=== PATIENT | male | born 1980 | race Caucasian/White ===

== ENCOUNTER 2023-04-18 17:38 | Inpatient (IN) | payer OTHER, MEDICAID ==
[~2023-04-18] VITALS: Ht 180.3 cm; Wt 103.0 kg
[2023-04-18 17:58] VITALS: RESP 18
[2023-04-18] MEDS ORDERED: MORPHINE 4 MG INJ. 4 MG/ML VIAL IVP ONE (20:15)
[2023-04-18 20:21] LABS: BASOPHILS # (AUTO) 0.1 K/uL (0.0-0.2); BASOPHILS % (AUTO) 0.5 % (0.0-2.0); EOSINOPHILS # (AUTO) 0.4 K/uL (0.0-0.4); HEMATOCRIT 22.5 % (36-54); HEMOGLOBIN 7.2 g/dL (14.0-18.0); LYMPHOCYTES # (AUTO) 1.9 K/uL (1.0-5.5); LYMPHOCYTES % (AUTO) 17.4 % (20.5-51.5); MEAN CORPUSCULAR HEMOGLOBIN 26 pg (27-31); MEAN CORPUSCULAR HGB CONC 32 % (32-36); MEAN CORPUSCULAR VOLUME 79 fL (79.0-98.0); MONOCYTES # (AUTO) 1.2 K/uL (0.0-1.0); NEUTROPHILS # (AUTO) 7.4 K/uL (1.8-7.7); NEUTROPHILS % (AUTO) 67.1 % (40.0-70.0); PLATELET COUNT (AUTO) 597 K/uL (130-430); RED BLOOD CELL COUNT(AUTO) 2.84 MIL/uL (4.2-6.2); RED CELL DISTRIBUTION WIDTH 17.4 % (9.0-15.0)
[2023-04-18 20:39] LABS: ALANINE AMINOTRANSFERASE 5 U/L (12-78); ALBUMIN 2.4 g/dL (3.4-4.8); ANION GAP 11 (5-15); ASPARTATE AMINOTRANSFERASE 18 U/L (10-37); CALCIUM 9.3 mg/dL (8.4-11.0); CARBON DIOXIDE 27 mmol/L (23-29); CHLORIDE 89 mmol/L (98-107); GFR AFRICAN AMERICAN 10 mL/min (>90); GLUCOSE 183 mg/dL (74-106); POTASSIUM 4.1 mmol/L (3.5-5.1); SODIUM SERUM 127 mmol/L (136-145); TOTAL BILIRUBIN 0.2 mg/dL (0.0-1.0); TOTAL PROTEIN, SERUM 7.7 g/dL (6.4-8.3); UREA NITROGEN, BLOOD 46 mg/dL (8-21)
[2023-04-18 20:40] LABS: GFR NON AFRICAN-AMERICAN 8 mL/min (>90)
[2023-04-18 20:42] LABS: CREATININE 7.73 mg/dL (0.55-1.30)
[2023-04-18] MEDS ORDERED: SSNOVOLOG SUBCUT (21:50)
[2023-04-18] MEDS ORDERED: FOLI0.8T42 PO (21:50)
[2023-04-18] MEDS ORDERED: BISA-140 PO (21:50)
[2023-04-18] MEDS ORDERED: AMIN30LI2 PO (21:50)
[2023-04-18] MEDS ORDERED: COR25 PO (21:50)
[2023-04-18] MEDS ORDERED: VITD2000 PO (21:50)
[2023-04-18] MEDS ORDERED: LOP600 PO (21:50)
[2023-04-18] MEDS ORDERED: LOSA-415 PO (21:50)
[2023-04-18] MEDS ORDERED: ONDA-8 TL (21:50)
[2023-04-18] MEDS ORDERED: BISACODYL RC (21:50)
[2023-04-18] MEDS ORDERED: HYDR100T25 PO (21:50)
[2023-04-18] MEDS ORDERED: DIPH25CA83 PO (21:50)
[2023-04-18] MEDS ORDERED: DILAUDID PO (21:50)
[2023-04-18] MEDS ORDERED: HYDR-3921 PO (21:50)
[2023-04-18] MEDS ORDERED: TRAM50TA2 PO (21:50)
[2023-04-18] MEDS ORDERED: MOM PO (21:50)
[2023-04-18] MEDS ORDERED: PRO40 PO (21:50)
[2023-04-18] MEDS ORDERED: ZINC-220 PO (21:50)
[2023-04-18] MEDS ORDERED: ACET325T53 PO (21:50)
[2023-04-18] MEDS ORDERED: NOR10 PO (21:50)
[2023-04-18] MEDS ORDERED: CALC667T6 PO (21:50)
[2023-04-18] MEDS ORDERED: CYCL10TA24 PO (21:50)
[2023-04-18] MEDS ORDERED: MORPHINE 2 MG/ML INJ. SYRINGE IVP ONE (22:00)
[2023-04-19] MEDS ORDERED: DIPHENHYDRAMINE INJ 50 MG/ML VIAL IVP ONE (00:15)
[2023-04-19 02:18] VITALS: BP_SYST 144; PULSE 108; RESP 20; TEMP 98.6; O2SAT 95
[2023-04-19] MEDS ORDERED: NALOXONE HCL 0.4 MG/ML AMP (NARCAN) IVP PRN (05:45)
[2023-04-19] MEDS ORDERED: MORPHINE 2 MG/ML INJ. SYRINGE IVP ONE (05:45)
[2023-04-19] MEDS ORDERED: LACTULOSE 20 GM/30 ML UDC PO PRN (05:45)
[2023-04-19] MEDS ORDERED: traMADol HCL HCL 50 MG TABLET (ULTRAM) PO PRN (09:00)
[2023-04-19] MEDS ORDERED: MORPHINE 2 MG/ML INJ. SYRINGE IVP PRN (09:00)
[2023-04-19] MEDS: DIPHENHYDRAMINE HCL 25 MG CAPSULE PO PRN ×2 (09:47→15:41)
[2023-04-19] MEDS ORDERED: CHOLECALCIFEROL (VITAMIN D3) 2,000 UNIT TABLET PO ONE (10:00)
[2023-04-19] MEDS ORDERED: NEPHROVITE, (FOLIC ACID/VITAMIN B COMP W-C 1 TAB) PO ONE (10:00)
[2023-04-19] MEDS ORDERED: CARVEDILOL 25 MG TABLET (COREG) PO ONE (10:00)
[2023-04-19] MEDS ORDERED: CYCLOBENZAPRINE HCL 10 MG TABLET (FLEXERIL) PO ONE (10:00)
[2023-04-19] MEDS ORDERED: PANTOPRAZOLE SODIUM 40 MG TAB PO ONE (10:00)
[2023-04-19] MEDS ORDERED: amLODIPine BESYLATE 10 MG TABLET PO ONE (10:00)
[2023-04-19] MEDS ORDERED: GLUCOSE (DEXTROSE) ORAL GEL -Adults PO PRN (10:00)
[2023-04-19] MEDS ORDERED: D5W 1,000 ML IV PRN (10:00)
[2023-04-19] MEDS ORDERED: DEXTROSE 50% JECT 50 ML DISP.SYRIN IVP PRN (10:00)
[2023-04-19] MEDS ORDERED: GEMFIBROZIL 600 MG TABLET (LOPID) PO ONE (10:00)
[2023-04-19 11:20] VITALS: BP_SYST 164; PULSE 78; RESP 16; TEMP 96.3; O2SAT 95
[2023-04-19] MEDS ORDERED: INSULIN REGULAR, HUMAN 100 UNITS/ML, 3 ML VIAL SUBCUT SCH (11:30)
[2023-04-19] MEDS: CALCIUM ACETATE 667 MG CAP PO SCH ×2 (11:40→17:19)
[2023-04-19] MEDS: INSULIN REGULAR, HUMAN 100 UNITS/ML, 3 ML VIAL (humuLIN R) SUBCUT PRN ×2 (11:53→21:03)
[2023-04-19] MEDS: HYDROmorphone 1 MG/ML INJ. CARTRIDGE IVP PRN ×3 (11:55→20:49)
[2023-04-19] MEDS: hydrALAZINE HCL 25 MG TABLET PO SCH ×2 (13:30→22:57)
[2023-04-19] MEDS: HYDROcodone/ACETAMIN 7.5-325 MG TAB PO PRN ×3 (13:30→22:55)
[2023-04-19 15:24] VITALS: O2SAT 98
[2023-04-19 17:00] VITALS: BP_SYST 137; PULSE 73; RESP 16; TEMP 96.1; O2SAT 99
[2023-04-19 19:00] VITALS: BP_SYST 151; PULSE 78; RESP 16; TEMP 98.1; O2SAT 98
[2023-04-19] MEDS: CARVEDILOL 25 MG TABLET (COREG) PO SCH (20:55)
[2023-04-19] MEDS: CYCLOBENZAPRINE HCL 10 MG TABLET (FLEXERIL) PO SCH (20:56)
[2023-04-19] MEDS: GEMFIBROZIL 600 MG TABLET (LOPID) PO SCH (20:56)
[2023-04-19] MEDS ORDERED: CEFEPIME 1 GM/VIAL (MAXIPIME) ONE (22:53)
[2023-04-19] MEDS: CEFEPIME 1 GM in D5W 50 ML IV SCH (23:14)
[2023-04-20] MEDS: HYDROmorphone 1 MG/ML INJ. CARTRIDGE IVP PRN ×6 (01:25→21:57)
[2023-04-20] MEDS ORDERED: MAG-AL HYDROX/SIMETH 30 ML UDC PO PRN (01:30)
[2023-04-20 01:54] VITALS: BP_SYST 140; PULSE 74; RESP 17; TEMP 97.4; O2SAT 99
[2023-04-20] MEDS: DIPHENHYDRAMINE INJ 50 MG/ML VIAL IVP PRN ×4 (03:36→22:13)
[2023-04-20 05:16] LABS: BASOPHILS # (AUTO) 0.1 K/uL (0.0-0.2); BASOPHILS % (AUTO) 0.5 % (0.0-2.0); EOSINOPHILS # (AUTO) 0.4 K/uL (0.0-0.4); EOSINOPHILS % (AUTO) 3.3 % (0.0-4.0); HEMATOCRIT 22.6 % (36-54); HEMOGLOBIN 7.4 g/dL (14.0-18.0); LYMPHOCYTES # (AUTO) 1.3 K/uL (1.0-5.5); LYMPHOCYTES % (AUTO) 12.4 % (20.5-51.5); MEAN CORPUSCULAR HEMOGLOBIN 26 pg (27-31); MEAN CORPUSCULAR HGB CONC 33 % (32-36); MEAN CORPUSCULAR VOLUME 79 fL (79.0-98.0); MONOCYTES % (AUTO) 9.9 % (1.7-9.3); NEUTROPHILS # (AUTO) 7.8 K/uL (1.8-7.7); NEUTROPHILS % (AUTO) 73.9 % (40.0-70.0); PLATELET COUNT (AUTO) 576 K/uL (130-430); RED BLOOD CELL COUNT(AUTO) 2.86 MIL/uL (4.2-6.2); RED CELL DISTRIBUTION WIDTH 17.5 % (9.0-15.0); WHITE BLOOD COUNT (AUTO) 10.5 K/uL (4.8-10.8)
[2023-04-20] MEDS: hydrALAZINE HCL 25 MG TABLET PO SCH ×3 (05:31→21:41)
[2023-04-20 05:46] LABS: CALCIUM 9.3 mg/dL (8.4-11.0); CREATININE 6.14 mg/dL (0.55-1.30); POTASSIUM 3.7 mmol/L (3.5-5.1)
[2023-04-20 08:00] VITALS: BP_SYST 177; PULSE 78; RESP 20; TEMP 96.3; O2SAT 99
[2023-04-20] MEDS: CARVEDILOL 25 MG TABLET (COREG) PO SCH ×2 (08:37→21:39)
[2023-04-20] MEDS: PANTOPRAZOLE SODIUM 40 MG TAB PO SCH (08:37)
[2023-04-20] MEDS: NEPHROVITE, (FOLIC ACID/VITAMIN B COMP W-C 1 TAB) PO SCH (08:38)
[2023-04-20] MEDS: CALCIUM ACETATE 667 MG CAP PO SCH ×3 (08:38→17:45)
[2023-04-20] MEDS: CHOLECALCIFEROL (VITAMIN D3) 2,000 UNIT TABLET PO SCH (08:38)
[2023-04-20] MEDS: GEMFIBROZIL 600 MG TABLET (LOPID) PO SCH ×2 (08:38→21:40)
[2023-04-20] MEDS: HYDROcodone/ACETAMIN 7.5-325 MG TAB PO PRN ×2 (08:39→15:16)
[2023-04-20] MEDS: LOSARTAN POTASSIUM 50 MG TABLET (COZAAR) PO SCH (08:40)
[2023-04-20] MEDS: amLODIPine BESYLATE 10 MG TABLET PO SCH (08:41)
[2023-04-20] MEDS: CYCLOBENZAPRINE HCL 10 MG TABLET (FLEXERIL) PO SCH ×2 (08:41→21:40)
[2023-04-20] MEDS: INSULIN REGULAR, HUMAN 100 UNITS/ML, 3 ML VIAL (humuLIN R) SUBCUT PRN ×3 (12:31→22:25)
[2023-04-20 17:08] VITALS: BP_SYST 161; PULSE 73; RESP 18; TEMP 98.1; O2SAT 99
[2023-04-20] MEDS: BISACODYL 5 MG TABLET.DR (DULCOLAX) PO PRN (17:08)
[2023-04-20 20:00] VITALS: BP_SYST 138; PULSE 78; RESP 15; TEMP 98; O2SAT 98
[2023-04-20] MEDS: CEFEPIME 1 GM in D5W 50 ML IV SCH (21:42)
[2023-04-20 22:00] VITALS: BP_SYST 138; PULSE 72; RESP 18; TEMP 98.2; O2SAT 100
[2023-04-21] VITALS (7 sets, daily range): BP systolic 132–169; PULSE 70–82; RESP 16–19; TEMP 97.2–98.4; O2SAT 95–100
[2023-04-21] MEDS: HYDROmorphone 1 MG/ML INJ. CARTRIDGE IVP PRN ×6 (02:19→21:40)
[2023-04-21] MEDS: DIPHENHYDRAMINE INJ 50 MG/ML VIAL IVP PRN ×3 (02:24→18:13)
[2023-04-21] MEDS: BISACODYL 5 MG TABLET.DR (DULCOLAX) PO PRN (04:08)
[2023-04-21] MEDS: hydrALAZINE HCL 25 MG TABLET PO SCH ×3 (06:16→21:40)
[2023-04-21] MEDS: NEPHROVITE, (FOLIC ACID/VITAMIN B COMP W-C 1 TAB) PO SCH (08:42)
[2023-04-21] MEDS: GEMFIBROZIL 600 MG TABLET (LOPID) PO SCH ×2 (08:42→21:26)
[2023-04-21] MEDS: CALCIUM ACETATE 667 MG CAP PO SCH ×3 (08:42→18:13)
[2023-04-21] MEDS: PANTOPRAZOLE SODIUM 40 MG TAB PO SCH (08:42)
[2023-04-21] MEDS: CHOLECALCIFEROL (VITAMIN D3) 2,000 UNIT TABLET PO SCH (08:43)
[2023-04-21] MEDS: CYCLOBENZAPRINE HCL 10 MG TABLET (FLEXERIL) PO SCH ×2 (08:43→21:26)
[2023-04-21] MEDS: LOSARTAN POTASSIUM 50 MG TABLET (COZAAR) PO SCH (08:43)
[2023-04-21] MEDS: amLODIPine BESYLATE 10 MG TABLET PO SCH (08:45)
[2023-04-21] MEDS: CARVEDILOL 25 MG TABLET (COREG) PO SCH ×2 (08:45→21:26)
[2023-04-21] MEDS: HYDROcodone/ACETAMIN 7.5-325 MG TAB PO PRN ×2 (08:49→16:00)
[2023-04-21] MEDS ORDERED: HEPARIN SODIUM,PORCINE 5,000 UNITS/ML VIAL MC ONE (14:00)
[2023-04-21] MEDS: INSULIN REGULAR, HUMAN 100 UNITS/ML, 3 ML VIAL (humuLIN R) SUBCUT PRN (17:50)
[2023-04-21] MEDS: CEFEPIME 1 GM in D5W 50 ML IV SCH (21:39)
[2023-04-22] MEDS: HYDROmorphone 1 MG/ML INJ. CARTRIDGE IVP PRN ×5 (01:12→17:51)
[2023-04-22] MEDS: DIPHENHYDRAMINE INJ 50 MG/ML VIAL IVP PRN ×3 (01:13→17:51)
[2023-04-22 02:36] VITALS: BP_SYST 145; PULSE 75; RESP 17; TEMP 97.6; O2SAT 98
[2023-04-22 06:20] LABS: BASOPHILS % (AUTO) 0.5 % (0.0-2.0); EOSINOPHILS # (AUTO) 0.3 K/uL (0.0-0.4); EOSINOPHILS % (AUTO) 3.1 % (0.0-4.0); HEMATOCRIT 22.2 % (36-54); HEMOGLOBIN 7.2 g/dL (14.0-18.0); LYMPHOCYTES # (AUTO) 1.2 K/uL (1.0-5.5); LYMPHOCYTES % (AUTO) 13.2 % (20.5-51.5); MEAN CORPUSCULAR HEMOGLOBIN 26 pg (27-31); MEAN CORPUSCULAR HGB CONC 32 % (32-36); MEAN CORPUSCULAR VOLUME 79 fL (79.0-98.0); MONOCYTES % (AUTO) 10.1 % (1.7-9.3); NEUTROPHILS # (AUTO) 6.9 K/uL (1.8-7.7); NEUTROPHILS % (AUTO) 73.1 % (40.0-70.0); PLATELET COUNT (AUTO) 475 K/uL (130-430); RED BLOOD CELL COUNT(AUTO) 2.81 MIL/uL (4.2-6.2); RED CELL DISTRIBUTION WIDTH 17.7 % (9.0-15.0); WHITE BLOOD COUNT (AUTO) 9.4 K/uL (4.8-10.8)
[2023-04-22 06:29] LABS: CALCIUM 9.3 mg/dL (8.4-11.0); CREATININE 5.76 mg/dL (0.55-1.30); POTASSIUM 3.9 mmol/L (3.5-5.1)
[2023-04-22] MEDS: hydrALAZINE HCL 25 MG TABLET PO SCH ×2 (06:44→13:36)
[2023-04-22 07:51] VITALS: BP_SYST 164; PULSE 79; RESP 18; TEMP 98.5; O2SAT 97
[2023-04-22] MEDS: CALCIUM ACETATE 667 MG CAP PO SCH ×3 (09:12→17:50)
[2023-04-22] MEDS: NEPHROVITE, (FOLIC ACID/VITAMIN B COMP W-C 1 TAB) PO SCH (09:12)
[2023-04-22] MEDS: CHOLECALCIFEROL (VITAMIN D3) 2,000 UNIT TABLET PO SCH (09:12)
[2023-04-22] MEDS: PANTOPRAZOLE SODIUM 40 MG TAB PO SCH (09:12)
[2023-04-22] MEDS: LOSARTAN POTASSIUM 50 MG TABLET (COZAAR) PO SCH (09:13)
[2023-04-22] MEDS: GEMFIBROZIL 600 MG TABLET (LOPID) PO SCH (09:14)
[2023-04-22] MEDS: amLODIPine BESYLATE 10 MG TABLET PO SCH (09:14)
[2023-04-22] MEDS: CYCLOBENZAPRINE HCL 10 MG TABLET (FLEXERIL) PO SCH (09:14)
[2023-04-22] MEDS: CARVEDILOL 25 MG TABLET (COREG) PO SCH (09:15)
[2023-04-22] MEDS: HYDROcodone/ACETAMIN 7.5-325 MG TAB PO PRN ×2 (11:39→16:17)
[2023-04-22 12:02] VITALS: BP_SYST 152; PULSE 88; RESP 17; TEMP 98.1; O2SAT 98
[2023-04-22] MEDS: INSULIN REGULAR, HUMAN 100 UNITS/ML, 3 ML VIAL (humuLIN R) SUBCUT PRN ×2 (13:18→18:21)
[2023-04-22] MEDS: BISACODYL 5 MG TABLET.DR (DULCOLAX) PO PRN (13:36)
[2023-04-22 16:03] VITALS: BP_SYST 150; PULSE 78; RESP 18; TEMP 98.3; O2SAT 98
[2023-04-22 16:58] VITALS: BP_SYST 150; PULSE 78; RESP 18; TEMP 98.3; O2SAT 98
== END 2023-04-22 20:00 | DRG 640 ==
LOC: SED 17:38 → STU 04-19 00:14
PROVIDERS: ADMIT Internal Medicine; ATTEND Internal Medicine
PROC: 5A1D70Z Performance of Urinary Filtration, Intermittent, Less than 6 Hours Per Day (ICD-10-PCS; principal; 2023-03-19)
PROC: 5A1D70Z Performance of Urinary Filtration, Intermittent, Less than 6 Hours Per Day (ICD-10-PCS; 2023-03-21)
DX: E87.70 Fluid overload, unspecified (principal); N18.6 End stage renal disease; E44.0 Moderate protein-calorie malnutrition; I12.0 Hypertensive chronic kidney disease with stage 5 chronic kidney disease or end stage renal disease; E11.52 Type 2 diabetes mellitus with diabetic peripheral angiopathy with gangrene; I96 Gangrene, not elsewhere classified; Z20.822 Contact with and (suspected) exposure to COVID-19; E78.5 Hyperlipidemia, unspecified; E11.22 Type 2 diabetes mellitus with diabetic chronic kidney disease; D63.1 Anemia in chronic kidney disease; Z99.2 Dependence on renal dialysis; Z89.511 Acquired absence of right leg below knee; Z68.31 Body mass index [BMI] 31.0-31.9, adult; Z91.013 Allergy to seafood
CPT/HCPCS: 36415; 71045; 80048; 80053; 82962; 83880; 84484; 85025; 87040; 87081; 93005; 99285; G0378; J0692; J1170; J1200; J1644; J1815; J2270; J7060; Q0163